=== PATIENT | female | born 1985 | race Caucasian/White ===

== ENCOUNTER → 2017-10-26 10:48 | Outpatient (CLI) | payer BC, SELFPAY ==
[2017-10-26 12:17] LABS: Add Manual Diff / Slide Review NO; Basophils Percent Auto 0.6 % (0-2); Eosinophils Percent Auto 0.6 % (2-4); Hematocrit 40.5 % (36-46); Hemoglobin 13.6 g/dL (12.0-16.0); Mean Corpuscular HGB Conc 33.7 % (30-36); Mean Corpuscular Hemoglobin 30.3 PG (26-34); Mean Corpuscular Volume 89.8 fL (80-100); Monocytes Percent Auto 6.2 % (3-14); Neutrophils Absolute Auto 4400 /uL (3000-5900); Neutrophils Percent Auto 66.6 % (50-75); Platelet Count 295 X10^3/uL (150-400); Red Blood Cell Count 4.51 X10^6/uL (4.0-5.2); Red Cell Distribution Width 15.3 % (11.6-14.8); White Blood Cell Count 6.6 X10^3/uL (4.5-11.0)
[2017-10-26 12:25] LABS: BUN Creatinine Ratio 17.1 (6-22); Blood Urea Nitrogen 12 mg/dL (7-17); Calcium 9.7 mg/dL (8.4-10.2); Carbon Dioxide 28 mmol/L (22-32); Chloride 101 mmol/L (98-107); Estimated Glomerular Filt Rate > 60.0 mL/min (>60); Glucose 97 mg/dL (70-100); HEMOLYSIS < 15 (0-50); Potassium 4.1 mmol/L (3.4-5.1); Sodium 141 mmol/L (137-145)
[2017-10-26 17:28] LABS: Free T3, Triiodothyronine Free 2.39 pg/mL (2.77-5.27)
[2017-10-26 17:42] LABS: TSH w/ Reflex to FT4 1.09 uIU/mL (0.47-4.68)
== END ==
PROVIDERS: Family Provider Physician Assistant; PCP Physician Assistant; Visit Provider Physician Assistant
DX: R53.83 Other fatigue (principal)
CPT/HCPCS: 36415; 80048; 84443; 84481; 85025

== ENCOUNTER → 2019-05-09 06:57 | Outpatient (CLI) | payer BC, SELFPAY ==
[2019-05-09 08:20] LABS: Add Manual Diff / Slide Review NO; Basophils Absolute Auto 100 /uL (0-100); Basophils Percent Auto 0.7 % (0-2); Eosinophils Absolute Auto 200 /uL (0-450); Eosinophils Percent Auto 2.4 % (2-4); Hematocrit 37.4 % (36-46); Hemoglobin 12.4 g/dL (12.0-16.0); Lymphocytes Absolute Auto 2400 /uL (1100-4500); Lymphocytes Percent Auto 34.8 % (25-40); Mean Corpuscular HGB Conc 33.1 % (30-36); Mean Corpuscular Hemoglobin 28.8 PG (26-34); Mean Corpuscular Volume 87.2 fL (80-100); Monocytes Absolute Auto 600 /uL (0-900); Monocytes Percent Auto 8.6 % (3-14); Neutrophils Absolute Auto 3700 /uL (1500-7000); Neutrophils Percent Auto 53.5 % (50-75); Platelet Count 356 X10^3/uL (150-400); Red Blood Cell Count 4.28 X10^6/uL (4.0-5.2); Red Cell Distribution Width 17.3 % (11.6-14.8); White Blood Cell Count 6.8 X10^3/uL (4.5-11.0)
[2019-05-09 08:34] LABS: Pregnancy Test Serum,Qual Negative (Negative)
[2019-05-09 08:36] LABS: Alanine Aminotransferase 36 IU/L (<35); Albumin 4.7 g/dL (3.5-5.0); Albumin Globulin Ratio 1.6 (1.0-2.8); Alkaline Phosphatase 82 U/L (38-126); Aspartate Aminotransferase 41 IU/L (14-36); Bilirubin Total 0.3 mg/dL (0.2-1.3); Blood Urea Nitrogen 18 mg/dL (7-17); Calcium 9.9 mg/dL (8.4-10.2); Carbon Dioxide 29 mmol/L (22-32); Chloride 101 mmol/L (98-107); Estimated Glomerular Filt Rate > 60.0 mL/min (>60); Globulin 2.9 g/dL (1.7-4.1); Glucose 84 mg/dL (70-100); HEMOLYSIS < 15 (0-50); Potassium 4.1 mmol/L (3.4-5.1); Sodium 141 mmol/L (137-145); Total Protein 7.6 g/dL (6.3-8.2)
[2019-05-09 08:52] LABS: Free T4, Direct Thyroxine 0.87 ng/dL (0.78-2.19)
[2019-05-09 08:57] LABS: Vitamin D 25 Hydroxy (D3) 40.9 ng/mL (30.0-100.0)
[2019-05-09 09:05] LABS: Thyroid Stimulating Hormone 1.89 uIU/mL (0.47-4.68)
== END ==
PROVIDERS: Family Provider Physician Assistant; PCP Physician Assistant; Referring Provider Nurse Practitioner Psychiatric/Mental Health; Visit Provider Nurse Practitioner Psychiatric/Mental Health
DX: Z00.00 Encounter for general adult medical examination without abnormal findings (principal); Z51.81 Encounter for therapeutic drug level monitoring; F41.8 Other specified anxiety disorders
CPT/HCPCS: 36415; 80053; 82306; 84439; 84443; 84703; 85025

== ENCOUNTER → 2019-05-25 12:32 | Outpatient (CLI) | payer BC, SELFPAY ==
[2019-05-25 14:01] LABS: Alanine Aminotransferase 14 IU/L (<35); Albumin Globulin Ratio 1.6 (1.0-2.8); Alkaline Phosphatase 71 U/L (38-126); Aspartate Aminotransferase 24 IU/L (14-36); Bilirubin Total 0.3 mg/dL (0.2-1.3); Bilirubin Unconjugated 0.2 mg/dL (0.0-1.1); Globulin 3.2 g/dL (1.7-4.1); HEMOLYSIS < 15 (0-50); Total Protein 8.2 g/dL (6.3-8.2)
== END ==
PROVIDERS: Family Provider Physician Assistant; PCP Nurse Practitioner; Referring Provider Nurse Practitioner; Visit Provider Nurse Practitioner
DX: R74.8 Abnormal levels of other serum enzymes (principal)
CPT/HCPCS: 36415; 80076

== ENCOUNTER 2019-08-08 16:06 | Emergency (ER) | payer BC, SELFPAY ==
[2019-08-08 16:15] VITALS: BP 128/84; PULSE 68; RESP 18; TEMP 36.7; O2SAT 99
--- NOTE | 2019-08-08 16:23 | PC.NURSE ---
Patient has a history or vasovagel response. Patient has felt near syncope three times today. Feels overall fatigued. Denies chest pain or SOB
--- NOTE | 2019-08-08 16:25 | DI.RAD.S_ITS ---
PROCEDURE: XR CHEST 1V INDICATIONS: chest pain TECHNIQUE: One view of the chest was acquired. COMPARISON: [facility], , CHEST 2 VIEW, 01/08/2015, 9:30. FINDINGS: Surgical changes and devices: None. Lungs and pleura: Lungs are clear. No pleural effusions or pneumothorax. Mediastinum: Mediastinal contours appear normal. Heart size is normal. Bones and chest wall: No suspicious bony lesions. Overlying soft tissues appear unremarkable. IMPRESSION: No acute process. Dictated by: Paramjit Timmons M.D. on 08/08/2019 at 17:54 Approved by: Paramjit Timmons M.D. on 08/08/2019 at 17:54
--- NOTE | 2019-08-08 16:41 | ED.SYNCOPE ---
HPI - Syncope <Lila Cortez DO - Last Filed: 08/08/19 16:42> General Chief Complaint: Syncope Stated Complaint: Syncopable episodes Time Seen by Provider: 08/08/19 16:41 Source: patient, family and other Mode of arrival: Family Vehicle Limitations: no limitations Related Data Home Medications Medication Instructions Recorded Confirmed albuterol sulfate 90 mcg/actuation 2 puff INHALATION Q4-6H PRN inh 08/01/17 08/08/19 aerosol inhaler multivitamin 1 tab PO DAILY 09/05/18 08/08/19 cholecalciferol (vitamin D3) 25 2,000 unit PO DAILY cap 04/03/19 08/08/19 mcg (1,000 unit) capsule Previous Rx's Medication Instructions Recorded hydroxyzine pamoate 25 mg capsule 25 mg PO Q4-6H PRN #90 cap MDD 05/25/19 Anxiety lamotrigine 100 mg tablet 100 mg PO ONCE #90 tab 06/11/19 sertraline 100 mg tablet 150 mg PO DAILY #45 tab 07/16/19 ziprasidone HCl 20 mg capsule 20 mg PO BID #60 cap 07/16/19 Allergies Allergy/AdvReac Type Severity Reaction Status Date / Time clonazepam [CLONAZEPAM] AdvReac Severe suicidal Verified 08/08/19 16:31 ideation <Shannan Zambrano PA-C - Last Filed: 08/08/19 20:09> General Source: patient Mode of arrival: Ambulatory Limitations: no limitations <Shannan Zambrano PA-C - Last Filed: 08/08/19 20:09> Review of Systems Narrative: 12 point review of systems is negative except for those stated above Patient History <Lila Cortez DO - Last Filed: 08/08/19 16:42> Social History (Updated 07/22/17 @ 08:59 by Sari Jones RN) household members: spouse lives independently: Yes pets and animals: Yes education level: college occupational status: employed leisure activities: other other: dancing, theater seatbelt use: always water heater temp set < 120 deg: Yes working smoke detector in home: Yes fire extinguisher in home: No carbon monox detector in home: Yes firearms in home: No Smoking Status: Never smoker second hand exposure: Yes (ocassionaly. My smokes, but not around me.) alcohol intake: current (usually jin - maybe once a week.) substance use type: does not use during the past year weight has: remained stable well-balanced diet: daily or most days daily servings fruits/ve-4 caffeine: Yes eating out: 1-3 times/week Type(s) of exercise: walking and other frequency: 5-6 times per week Smoking Status: Never smoker alcohol intake frequency: 0-2 drinks per day Substance Use Type: does not use Exam <Lila Cortez DO - Last Filed: 08/08/19 16:42> Initial Vital Signs Initial Vital Signs: Vital Signs Temperature 98.1 F 08/08/19 16:15 Pulse Rate 68 08/08/19 16:15 Respiratory Rate 18 08/08/19 16:15 Blood Pressure 128/84 08/08/19 16:15 Pulse Oximetry 99 08/08/19 16:15 <Shannan Zambrano PA-C - Last Filed: 08/08/19 20:09> Initial Vital Signs Initial Vital Signs: Vital Signs Temperature 98.1 F 08/08/19 16:15 Pulse Rate 68 08/08/19 16:15 Respiratory Rate 18 08/08/19 16:15 Blood Pressure 128/84 08/08/19 16:15 Pulse Oximetry 99 08/08/19 16:15 Course <Lila Cortez DO - Last Filed: 08/08/19 16:42> Orders Ordered: ED Orders 08/08/19 16:25 XR chest 1V Stat EKG-12 Lead Stat 08/08/19 17:03 Complete Blood Count AUTO DIFF Stat Comprehensive Metabolic Panel Stat Lipase Stat Partial Thromboplastin Time Stat Prothrombin Time INR Stat Troponin & CK Cardiac Panel Stat 08/08/19 19:00 CT head/brain wo con Stat Vital Signs Vital signs: Vital Signs - 8 hr 08/08/19 16:15 08/08/19 18:58 08/08/19 19:42 Temperature 98.1 F Pulse Rate 68 66 73 Respiratory Rate 18 14 16 Blood Pressure 128/84 Blood Pressure [Right Arm] 128/84 133/92 H Pulse Oximetry 99 99 98 <JASS Nelson Last Filed: 08/08/19 20:09> Orders Ordered: ED Orders 08/08/19 16:25 XR chest 1V Stat EKG-12 Lead Stat 08/08/19 17:03 Complete Blood Count AUTO DIFF Stat Comprehensive Metabolic Panel Stat Lipase Stat Partial Thromboplastin Time Stat Prothrombin Time INR Stat Troponin & CK Cardiac Panel Stat 08/08/19 19:00 CT head/brain wo con Stat Vital Signs Vital signs: Vital Signs - 8 hr 08/08/19 16:15 08/08/19 18:58 08/08/19 19:42 Temperature 98.1 F Pulse Rate 68 66 73 Respiratory Rate 18 14 16 Blood Pressure 128/84 Blood Pressure [Right Arm] 128/84 133/92 H Pulse Oximetry 99 99 98 MDM - Syncope <Lila Cortez, DO - Last Filed: 08/08/19 16:42> Lab Data Result diagrams: 08/08/19 17:03 08/08/19 17:03 Labs: Lab Results 08/08/19 08/08/19 08/08/19 Range/Units 17:03 17:03 17:03 WBC 6.1 (4.5-11.0) X10^3/uL RBC 4.24 (4.0-5.2) X10^6/uL Hgb 11.9 L (12.0-16.0) g/dL Hct 36.4 (36-46) % MCV 85.8 (80-100) fL MCH 28.1 (26-34) PG MCHC 32.7 (30-36) % RDW 17.1 H (11.6-14.8) % Plt Count 309 (150-400) X10^3/uL Neut % (Auto) 51.1 (50-75) % Lymph % (Auto) 35.3 (25-40) % [place] % (Auto) 10.5 (3-14) % Eos % (Auto) 2.1 (2-4) % Baso % (Auto) 1.0 (0-2) % Neut # (Auto) 3100 (3054-1394) /uL Lymph # (Auto) 2100 (7678-0160) /uL [place] # (Auto) 600 (0-900) /uL Eos # (Auto) 100 (0-450) /uL Baso # (Auto) 100 (0-100) /uL PT 12.0 (10.1-12.7) SECONDS INR 1.0 (0.9-1.3) APTT 34 (26.4-36.2) SECONDS Sodium 139 (137-145) mmol/L Potassium 4.5 (3.4-5.1) mmol/L Chloride 105 (98-107) mmol/L Carbon Dioxide 27 (22-32) mmol/L BUN 13 (7-17) mg/dL Creatinine 0.80 (0.52-1.04) mg/dL Estimated GFR > 60.0 (>60) mL/min BUN/Creatinine Ratio 16.3 (6-22) Glucose 94 (70-100) mg/dL Calcium 9.7 (8.4-10.2) mg/dL Total Bilirubin 0.3 (0.2-1.3) mg/dL AST 23 (14-36) IU/L ALT 11 (<35) IU/L Alkaline Phosphatase 62 (38-126) U/L Total Creatine Kinase 71 (30-135) U/L CK-MB (CK-2) TNP CK-MB (CK-2) Rel Index TNP Troponin I < 0.012 (0.01-0.034) ng/mL Total Protein 7.8 (6.3-8.2) g/dL Albumin 4.7 (3.5-5.0) g/dL Globulin 3.1 (1.7-4.1) g/dL Albumin/Globulin Ratio 1.5 (1.0-2.8) Lipase 191 (23-300) U/L Point of Care Testing Test Results Negative Urine Dip Bedside Urine Glucose Negative Bedside Urine Bilirubin - Negative Bedside Urine Ketone - Negative Urine Specific [place] 1.010 Bedside Urine Occult Blood - Negative Bedside Urine pH 6.5 Bedside Urine Protein - Negative Bedside Urine Urobilinogen - Negative Bedside Urine Nitrite - Negative Bedside Urine Leukocytes +/- 15 Esterase ECG Data Attestation: I personally reviewed and interpreted this ECG as follows: Interpretation: Sinus rhythm with sinus arrhythmia rate of 73 P are 149 QRS 84 and QTC of 415. No ST changes appreciated. Patient has prior EKG from 01/30/2016 which appears similar. <Shannan Zambrano PA-C - Last Filed: 08/08/19 20:09> Lab Data Labs: Lab Results 08/08/19 08/08/19 08/08/19 Range/Units 17:03 17:03 17:03 WBC 6.1 (4.5-11.0) X10^3/uL RBC 4.24 (4.0-5.2) X10^6/uL Hgb 11.9 L (12.0-16.0) g/dL Hct 36.4 (36-46) % MCV 85.8 (80-100) fL MCH 28.1 (26-34) PG MCHC 32.7 (30-36) % RDW 17.1 H (11.6-14.8) % Plt Count 309 (150-400) X10^3/uL Neut % (Auto) 51.1 (50-75) % Lymph % (Auto) 35.3 (25-40) % [place] % (Auto) 10.5 (3-14) % Eos % (Auto) 2.1 (2-4) % Baso % (Auto) 1.0 (0-2) % Neut # (Auto) 3100 (4254-9027) /uL Lymph # (Auto) 2100 (8498-6405) /uL [place] # (Auto) 600 (0-900) /uL Eos # (Auto) 100 (0-450) /uL Baso # (Auto) 100 (0-100) /uL PT 12.0 (10.1-12.7) SECONDS INR 1.0 (0.9-1.3) APTT 34 (26.4-36.2) SECONDS Sodium 139 (137-145) mmol/L Potassium 4.5 (3.4-5.1) mmol/L Chloride 105 (98-107) mmol/L Carbon Dioxide 27 (22-32) mmol/L BUN 13 (7-17) mg/dL Creatinine 0.80 (0.52-1.04) mg/dL Estimated GFR > 60.0 (>60) mL/min BUN/Creatinine Ratio 16.3 (6-22) Glucose 94 (70-100) mg/dL Calcium 9.7 (8.4-10.2) mg/dL Total Bilirubin 0.3 (0.2-1.3) mg/dL AST 23 (14-36) IU/L ALT 11 (<35) IU/L Alkaline Phosphatase 62 (38-126) U/L Total Creatine Kinase 71 (30-135) U/L CK-MB (CK-2) TNP CK-MB (CK-2) Rel Index TNP Troponin I < 0.012 (0.01-0.034) ng/mL Total Protein 7.8 (6.3-8.2) g/dL Albumin 4.7 (3.5-5.0) g/dL Globulin 3.1 (1.7-4.1) g/dL Albumin/Globulin Ratio 1.5 (1.0-2.8) Lipase 191 (23-300) U/L Point of Care Testing Test Results Negative Urine Dip Bedside Urine Glucose Negative Bedside Urine Bilirubin - Negative Bedside Urine Ketone - Negative Urine Specific [place] 1.010 Bedside Urine Occult Blood - Negative Bedside Urine pH 6.5 Bedside Urine Protein - Negative Bedside Urine Urobilinogen - Negative Bedside Urine Nitrite - Negative Bedside Urine Leukocytes +/- 15 Esterase Discharge Plan Departure Patient Disposition: Home Clinical Impression: Syncope Qualifiers: Syncope type: unspecified Qualified Code(s): R55 - Syncope and collapse Lower extremity weakness Qualifiers: Laterality: bilateral Qualified Code(s): R29.898 - Other symptoms and signs involving the musculoskeletal system Instructions: DI for Syncope in Adults (Fainting) Activity Restrictions/Additional Instructions: Thank you for letting us to be part of your care today in the emergency department. There is no evidence of an emergent or life threatening illness at this time, but follow up with your doctor in 1-2 days is recommended nonetheless to continue to rule out serious underlying causes of your symptoms. Please call the office for an appointment. Please return to the Emergency Department for any worsening or persistent symptoms. Please take medications as directed. We do not have a clear answer for the cause of your symptoms, and advise you to follow-up with your primary care in the next 1-2 days for reassessment, if you continue to have symptoms your PCP may wish to refer you for an MRI for further assessment. If you experience fever, increasing weakness, loss of bowel or bladder function, severe headache, vision changes, nausea and vomiting, increased difficulty walking, or any other symptoms of concern to you please seek medical care or return to the emergency department. I am providing you with a work note, as I think it is advisable that you rest at home for the next few days. We did not find any evidence that your syncopal episodes are cardiac in nature, however we do not have a clear answer for why they are happening nor do we have a clear answer for why you have had increased leg weakness today. The CT scan that was performed did not show anything that would suggest a life-threatening concern or require further workup here or admission to the hospital today. Prescriptions: No Action albuterol sulfate [Ventolin HFA] 90 mcg/actuation HFA aerosol inhaler 2 puff INHALATION Q4-6H PRNRF: 0 cholecalciferol (vitamin D3) 1,000 unit capsule 2,000 unit PO DAILY RF: 0 lamotrigine 100 mg tablet 100 mg PO ONCE Qty: 90 RF: 0 ziprasidone HCl 20 mg capsule 20 mg PO BID Qty: 60 RF: 2 sertraline 100 mg tablet 150 mg PO DAILY Qty: 45 RF: 2 multivitamin tablet 1 tab PO DAILY RF: 0 hydroxyzine pamoate [Vistaril] 25 mg capsule 25 mg PO Q4-6H MDD Anxiety PRN (Reason: anxiety) Qty: 90 RF: 1 Referrals: Ashli Acevedo ARNP [Primary Care Provider] - Stand Alone Forms: Work Release Note
[2019-08-08 17:10] LABS: Add Manual Diff / Slide Review NO; Basophils Absolute Auto 100 /uL (0-100); Eosinophils Absolute Auto 100 /uL (0-450); Eosinophils Percent Auto 2.1 % (2-4); Hematocrit 36.4 % (36-46); Hemoglobin 11.9 g/dL (12.0-16.0); Lymphocytes Absolute Auto 2100 /uL (1100-4500); Lymphocytes Percent Auto 35.3 % (25-40); Mean Corpuscular HGB Conc 32.7 % (30-36); Mean Corpuscular Hemoglobin 28.1 PG (26-34); Mean Corpuscular Volume 85.8 fL (80-100); Monocytes Absolute Auto 600 /uL (0-900); Monocytes Percent Auto 10.5 % (3-14); Neutrophils Absolute Auto 3100 /uL (1500-7000); Neutrophils Percent Auto 51.1 % (50-75); Platelet Count 309 X10^3/uL (150-400); Red Blood Cell Count 4.24 X10^6/uL (4.0-5.2); Red Cell Distribution Width 17.1 % (11.6-14.8); White Blood Cell Count 6.1 X10^3/uL (4.5-11.0)
[2019-08-08 17:23] LABS: PTT Partial Thromboplastin Tim 34 SECONDS (26.4-36.2)
[2019-08-08 17:24] LABS: Alanine Aminotransferase 11 IU/L (<35); Albumin 4.7 g/dL (3.5-5.0); Albumin Globulin Ratio 1.5 (1.0-2.8); Alkaline Phosphatase 62 U/L (38-126); Aspartate Aminotransferase 23 IU/L (14-36); BUN Creatinine Ratio 16.3 (6-22); Bilirubin Total 0.3 mg/dL (0.2-1.3); Blood Urea Nitrogen 13 mg/dL (7-17); Calcium 9.7 mg/dL (8.4-10.2); Carbon Dioxide 27 mmol/L (22-32); Chloride 105 mmol/L (98-107); Creatine Kinase 71 U/L (30-135); Estimated Glomerular Filt Rate > 60.0 mL/min (>60); Globulin 3.1 g/dL (1.7-4.1); Glucose 94 mg/dL (70-100); HEMOLYSIS < 15 (0-50); Lipase 191 U/L (23-300); Potassium 4.5 mmol/L (3.4-5.1); Sodium 139 mmol/L (137-145); Total Protein 7.8 g/dL (6.3-8.2)
--- NOTE | 2019-08-08 17:24 | ED_ITS ---
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 She reports that she has been having the syncopal episodes about every 3 or 4 months, and was worked up for these by cardiology very thoroughly back in 2013, and they were not found to be cardiac in origin at that time. She says that she had a episode today which felt like her normal episodes in that she felt like the room was going dark and she knew she needed to sit down so she did not fall. She had a 2nd episode, and also realized that she was having weakness in both of her legs and feeling like her knees were going to give out most of the time when she was walking after this episode. She has never had this experience before with these episodes. She also notes that about a month ago she was sick for 2 weeks with nausea and vomiting that was unexplained, she says she never had a fever and did not seek medical care at that time but has been feeling a little bit tired ever since then. Yesterday she also felt foggy in her brain and today she felt like she was having some word-finding issues and difficulty with conversation. She is a nonsmoker and she does not take control she does take multiple medications for anxiety and depression. She denies any recent change to her medications, denies heavy periods or recent bleeding, dehydration, or reduced PO intake. complaint: almost passed out Onset (ago): hour(s) (5) Duration of episode: 30 -: second(s) Prodromal symptoms: vision changes and lightheaded Witnessed: yes - by bystander Context: other (occurred while standing at work) Injuries sustained associated with event: none Current symptoms: lightheaded and weakness (of lower legs) History: previous syncopal episode Treatments prior to arrival: none Related Data Home Medications Medication Instructions Recorded Confirmed albuterol sulfate 90 mcg/actuation 2 puff INHALATION Q4-6H PRN inh 08/01/17 08/08/19 aerosol inhaler multivitamin 1 tab PO DAILY 09/05/18 08/08/19 cholecalciferol (vitamin D3) 25 2,000 unit PO DAILY cap 04/03/19 08/08/19 mcg (1,000 unit) capsule Previous Rx's Medication Instructions Recorded hydroxyzine pamoate 25 mg capsule 25 mg PO Q4-6H PRN #90 cap MDD 05/25/19 Anxiety lamotrigine 100 mg tablet 100 mg PO ONCE #90 tab 06/11/19 sertraline 100 mg tablet 150 mg PO DAILY #45 tab 07/16/19 ziprasidone HCl 20 mg capsule 20 mg PO BID #60 cap 07/16/19 Allergies Allergy/AdvReac Type Severity Reaction Status Date / Time clonazepam [CLONAZEPAM] AdvReac Severe suicidal Verified 08/08/19 16:31 ideation Review of Systems <Shannan Zambrano PA-C - Last Filed: 08/08/19 20:28> Review of Systems Narrative: GENERAL: Denies chills, fatigue, malaise, fever, sweats. HEENT: Denies sinus pain, ear pain, sore throat, difficulty swallowing, positive for dizziness. RESPIRATORY: Denies dyspnea, cough, wheezing, hemoptysis, sputum. CARDIOVASCULAR: Denies chest pain, palpitations, orthopnea, edema, GASTROINTESTINAL: Denies abdominal pain, diarrhea, constipation, melena, positive for approximately 2 weeks of nausea and vomiting that resolved 1-1/2 to 2 weeks ago. : Denies dysuria, frequency, incontinence, hematuria, urinary retention. MUSCULOSKELETAL: Positive for bilateral lower extremity weakness, difficulty walking, slow gait, denies, joint pain, or bony pain SKIN: Denies rash, skin lesions, or other NEUROLOGIC: Denies weakness, headache, numbness, change in speech, confusion, seizures, incoordination. PSYCHIATRIC: No concerning psychosocial issues. Patient History <Shannan Zambrano PA-C - Last Filed: 08/08/19 20:28> Social History (Updated 07/22/17 @ 08:59 by Sari Jones RN) household members: spouse lives independently: Yes pets and animals: Yes education level: college occupational status: employed leisure activities: other other: dancing, theater seatbelt use: always water heater temp set < 120 deg: Yes working smoke detector in home: Yes fire extinguisher in home: No carbon monox detector in home: Yes firearms in home: No Smoking Status: Never smoker second hand exposure: Yes (ocassionaly. My smokes, but not around me.) alcohol intake: current (usually jin - maybe once a week.) substance use type: does not use during the past year weight has: remained stable well-balanced diet: daily or most days daily servings fruits/ve-4 caffeine: Yes eating out: 1-3 times/week Type(s) of exercise: walking and other frequency: 5-6 times per week Smoking Status: Never smoker alcohol intake frequency: 0-2 drinks per day Substance Use Type: does not use Exam <Shannan Zambrano PA-C - Last Filed: 08/08/19 20:28> Narrative Exam Narrative: GENERAL: 33 year old patient appears stated age. Well-nourished, well-developed patient, in mild distress. HEAD: Atraumatic. Normocephalic. EYES: Pupils equal round and reactive. Extraocular motions intact. No scleral icterus. No injection or drainage. ENT: Nose without bleeding, purulent drainage. Throat without erythema, tonsillar hypertrophy or exudate. Airway patent. NECK: Trachea midline. Non tender CARDIOVASCULAR: Regular rate and rhythm without murmurs, gallops, or rubs. RESPIRATORY: Clear to auscultation. Breath sounds equal bilaterally. No wheezes, rales, or rhonchi. GASTROINTESTINAL: Abdomen soft, non-tender, nondistended. EXTREMITIES: No edema or joint tenderness. BACK: Nontender without deformity or crepitance. No flank tenderness. NEURO: AOx3. Cranial nerves are intact. Negative for pronator drift. Coordination is intact, strength is intact bilaterally, however slightly reduced in the lower extremities with 4/5 strength with active flexion and extension. Delayed walk with slight Left to Right movement as Pt concentrates on foot placement. SKIN: No rash or erythema of visible areas Initial Vital Signs Initial Vital Signs: Vital Signs Temperature 98.1 F 08/08/19 16:15 Pulse Rate 68 08/08/19 16:15 Respiratory Rate 18 08/08/19 16:15 Blood Pressure 128/84 08/08/19 16:15 Pulse Oximetry 99 08/08/19 16:15 <Jacque Gama MD - Last Filed: 08/08/19 21:37> Initial Vital Signs Initial Vital Signs: Vital Signs Temperature 98.1 F 08/08/19 16:15 Pulse Rate 68 08/08/19 16:15 Respiratory Rate 18 08/08/19 16:15 Blood Pressure 128/84 08/08/19 16:15 Pulse Oximetry 99 08/08/19 16:15 Course <JASS Nelson Last Filed: 08/08/19 20:28> Orders Ordered: ED Orders 08/08/19 16:25 XR chest 1V Stat EKG-12 Lead Stat 08/08/19 17:03 Complete Blood Count AUTO DIFF Stat Comprehensive Metabolic Panel Stat Lipase Stat Partial Thromboplastin Time Stat Prothrombin Time INR Stat Troponin & CK Cardiac Panel Stat 08/08/19 19:00 CT head/brain wo con Stat Vital Signs Vital signs: Vital Signs - 8 hr 08/08/19 16:15 08/08/19 18:58 08/08/19 19:42 Temperature 98.1 F Pulse Rate 68 66 73 Respiratory Rate 18 14 16 Blood Pressure 128/84 Blood Pressure [Right Arm] 128/84 133/92 H Pulse Oximetry 99 99 98 <Jacque Gama MD - Last Filed: 08/08/19 21:37> Orders Ordered: ED Orders 08/08/19 16:25 XR chest 1V Stat EKG-12 Lead Stat 08/08/19 17:03 Complete Blood Count AUTO DIFF Stat Comprehensive Metabolic Panel Stat Lipase Stat Partial Thromboplastin Time Stat Prothrombin Time INR Stat Troponin & CK Cardiac Panel Stat 08/08/19 19:00 CT head/brain wo con Stat Vital Signs Vital signs: Vital Signs - 8 hr 08/08/19 16:15 08/08/19 18:58 08/08/19 19:42 Temperature 98.1 F Pulse Rate 68 66 73 Respiratory Rate 18 14 16 Blood Pressure 128/84 Blood Pressure [Right Arm] 128/84 133/92 H Pulse Oximetry 99 99 98 MDM - Syncope <JASS Nelson Last Filed: 08/08/19 20:28> Differential Diagnosis Differential diagnosis: Likely other (near syncope, bilateral LE weakness, word finding difficulty) Medical Records Attestation: I reviewed the patient's medical records. Lab Data Attestation: I reviewed the patient's lab results. Result diagrams: 08/08/19 17:03 08/08/19 17:03 Labs: Lab Results 08/08/19 08/08/19 08/08/19 Range/Units 17:03 17:03 17:03 WBC 6.1 (4.5-11.0) X10^3/uL RBC 4.24 (4.0-5.2) X10^6/uL Hgb 11.9 L (12.0-16.0) g/dL Hct 36.4 (36-46) % MCV 85.8 (80-100) fL MCH 28.1 (26-34) PG MCHC 32.7 (30-36) % RDW 17.1 H (11.6-14.8) % Plt Count 309 (150-400) X10^3/uL Neut % (Auto) 51.1 (50-75) % Lymph % (Auto) 35.3 (25-40) % [place] % (Auto) 10.5 (3-14) % Eos % (Auto) 2.1 (2-4) % Baso % (Auto) 1.0 (0-2) % Neut # (Auto) 3100 (7635-3164) /uL Lymph # (Auto) 2100 (6500-8849) /uL [place] # (Auto) 600 (0-900) /uL Eos # (Auto) 100 (0-450) /uL Baso # (Auto) 100 (0-100) /uL PT 12.0 (10.1-12.7) SECONDS INR 1.0 (0.9-1.3) APTT 34 (26.4-36.2) SECONDS Sodium 139 (137-145) mmol/L Potassium 4.5 (3.4-5.1) mmol/L Chloride 105 (98-107) mmol/L Carbon Dioxide 27 (22-32) mmol/L BUN 13 (7-17) mg/dL Creatinine 0.80 (0.52-1.04) mg/dL Estimated GFR > 60.0 (>60) mL/min BUN/Creatinine Ratio 16.3 (6-22) Glucose 94 (70-100) mg/dL Calcium 9.7 (8.4-10.2) mg/dL Total Bilirubin 0.3 (0.2-1.3) mg/dL AST 23 (14-36) IU/L ALT 11 (<35) IU/L Alkaline Phosphatase 62 (38-126) U/L Total Creatine Kinase 71 (30-135) U/L CK-MB (CK-2) TNP CK-MB (CK-2) Rel Index TNP Troponin I < 0.012 (0.01-0.034) ng/mL Total Protein 7.8 (6.3-8.2) g/dL Albumin 4.7 (3.5-5.0) g/dL Globulin 3.1 (1.7-4.1) g/dL Albumin/Globulin Ratio 1.5 (1.0-2.8) Lipase 191 (23-300) U/L Point of Care Testing Test Results Negative Urine Dip Bedside Urine Glucose Negative Bedside Urine Bilirubin - Negative Bedside Urine Ketone - Negative Urine Specific [place] 1.010 Bedside Urine Occult Blood - Negative Bedside Urine pH 6.5 Bedside Urine Protein - Negative Bedside Urine Urobilinogen - Negative Bedside Urine Nitrite - Negative Bedside Urine Leukocytes +/- [address] scan - head: Attestation: I personally reviewed and interpreted this imaging study as follows: Radiologist's Impression: [place] [address] CT Scan Report Signed Patient: Marianela Styles CMR#: [id number] : 1985Acct:[id number] Age/Sex: 33 / FDate of Service: 08/08/19 Loc: ED Accession Number: [id number] Procedure: CT head/brain wo con Ordering Provider: Shannan Zambrano P.A-C PROCEDURE: CT HEAD/BRAIN WO CON INDICATIONS: weakness, word finding difficulty TECHNIQUE: Noncontrast 4.5 mm thick angled axial sections acquired from the foramen magnum to the vertex, with coronal and sagittal reformats. For radiation dose reduction, the following was used: automated exposure control, adjustment of mA and/or kV according to patient size. COMPARISON: None. FINDINGS: Image quality: Excellent. CSF spaces: Basal cisterns are patent. No extra-axial fluid collections. Ventricles are normal in size and shape. Brain: No midline shift. No intracranial masses or hemorrhage. Baker-white matter interface is normal. Skull and face: Calvarium and visualized facial bones are intact, without suspicious lesions. Sinuses: Visualized sinuses and mastoids are clear. IMPRESSION: No acute intracranial abnormality. Dictated by: Paramjit Timmons M.D. on 08/08/2019 at 19:30 Approved by: Paramjit Timmons M.D. on 08/08/2019 at 19:30 Chest x-ray: Attestation: I personally reviewed and interpreted this imaging study as follows: Radiologist's Impression: [address] [address] XRay Report Signed Patient: Marianela Styles CMR#: [id number] : 1985Acct:[id number] Age/Sex: 33 / FDate of Service: 08/08/19 Loc: ED Accession Number: [id number] Procedure: XR chest 1V Ordering Provider: Lila Cortez D.O. PROCEDURE: XR CHEST 1V INDICATIONS: chest pain TECHNIQUE: One view of the chest was acquired. COMPARISON: [facility], , CHEST 2 VIEW, 01/08/2015, 9:30. FINDINGS: Surgical changes and devices: None. Lungs and pleura: Lungs are clear. No pleural effusions or pneumothorax. Mediastinum: Mediastinal contours appear normal. Heart size is normal. Bones and chest wall: No suspicious bony lesions. Overlying soft tissues appear unremarkable. IMPRESSION: No acute process. Dictated by: Paramjit Timmons M.D. on 08/08/2019 at 17:54 Approved by: Paramjit Timmons M.D. on 08/08/2019 at 17:54 ECG Data Attestation: I personally reviewed and interpreted this ECG as follows: Prior ECG tracings: not available for review Interpretation: NSR Rate 73, [place] [address] changes, Normal sinus rhythm with sinus arrythmia. MDM Narrative Medical decision making narrative: This is a well-appearing 33-year-old nonsmoking woman with a history notable for rare syncopal episodes, depression and anxiety who presents to the emergency department with two near syncopal episodes today while at work, followed by bilateral lower extremity weakness and difficulty ambulating--referred by PCP after office visit. Also reports of word-finding difficulty. No red flag symptoms. Concern for possible CVA versus mass versus MS or other progressive neurologic disease, also concern for possible viral illness--she did have 2 weeks of nausea and vomiting recently without explanation. Neuro exam was normal, with exception of slightly reduced strength in the lower extremities. And some difficulty ambulating, she did have 1 episode of word- finding difficulty during interview. CT was negative for mass or intracranial bleed, labs were also unremarkable. COVID test was performed. Etiology of her near syncopal episodes remains unclear as does the cause of her bilateral lower extremity weakness, she may benefit from an MRI as an outpatient as referred by her PCP if warranted. She was discharged home to the care of her and follow-up with her primary care, given a note for work, and given emergency return precautions. <Jacque Gama MD - Last Filed: 08/08/19 21:37> Lab Data Labs: Lab Results 08/08/19 08/08/19 08/08/19 Range/Units 17:03 17:03 17:03 WBC 6.1 (4.5-11.0) X10^3/uL RBC 4.24 (4.0-5.2) X10^6/uL Hgb 11.9 L (12.0-16.0) g/dL Hct 36.4 (36-46) % MCV 85.8 (80-100) fL MCH 28.1 (26-34) PG MCHC 32.7 (30-36) % RDW 17.1 H (11.6-14.8) % Plt Count 309 (150-400) X10^3/uL Neut % (Auto) 51.1 (50-75) % Lymph % (Auto) 35.3 (25-40) % [place] % (Auto) 10.5 (3-14) % Eos % (Auto) 2.1 (2-4) % Baso % (Auto) 1.0 (0-2) % Neut # (Auto) 3100 (4294-3161) /uL Lymph # (Auto) 2100 (7539-1818) /uL [place] # (Auto) 600 (0-900) /uL Eos # (Auto) 100 (0-450) /uL Baso # (Auto) 100 (0-100) /uL PT 12.0 (10.1-12.7) SECONDS INR 1.0 (0.9-1.3) APTT 34 (26.4-36.2) SECONDS Sodium 139 (137-145) mmol/L Potassium 4.5 (3.4-5.1) mmol/L Chloride 105 (98-107) mmol/L Carbon Dioxide 27 (22-32) mmol/L BUN 13 (7-17) mg/dL Creatinine 0.80 (0.52-1.04) mg/dL Estimated GFR > 60.0 (>60) mL/min BUN/Creatinine Ratio 16.3 (6-22) Glucose 94 (70-100) mg/dL Calcium 9.7 (8.4-10.2) mg/dL Total Bilirubin 0.3 (0.2-1.3) mg/dL AST 23 (14-36) IU/L ALT 11 (<35) IU/L Alkaline Phosphatase 62 (38-126) U/L Total Creatine Kinase 71 (30-135) U/L CK-MB (CK-2) TNP CK-MB (CK-2) Rel Index TNP Troponin I < 0.012 (0.01-0.034) ng/mL Total Protein 7.8 (6.3-8.2) g/dL Albumin 4.7 (3.5-5.0) g/dL Globulin 3.1 (1.7-4.1) g/dL Albumin/Globulin Ratio 1.5 (1.0-2.8) Lipase 191 (23-300) U/L Point of Care Testing Test Results Negative Urine Dip Bedside Urine Glucose Negative Bedside Urine Bilirubin - Negative Bedside Urine Ketone - Negative Urine Specific [place] 1.010 Bedside Urine Occult Blood - Negative Bedside Urine pH 6.5 Bedside Urine Protein - Negative Bedside Urine Urobilinogen - Negative Bedside Urine Nitrite - Negative Bedside Urine Leukocytes +/- 15 Esterase Discharge Plan Departure Patient Disposition: Home Clinical Impression: Syncope Qualifiers: Syncope type: unspecified Qualified Code(s): R55 - Syncope and collapse Lower extremity weakness Qualifiers: Laterality: bilateral Qualified Code(s): R29.898 - Other symptoms and signs involving the musculoskeletal system Discharge Date/Time: 08/08/19 20:16 Instructions: DI for Syncope in Adults (Fainting) Activity Restrictions/Additional Instructions: Thank you for letting us to be part of your care today in the emergency department. There is no evidence of an emergent or life threatening illness at this time, but follow up with your doctor in 1-2 days is recommended nonetheless to continue to rule out serious underlying causes of your symptoms. Please call the office for an appointment. Please return to the Emergency Department for any worsening or persistent symptoms. Please take medications as directed. We do not have a clear answer for the cause of your symptoms, and advise you to follow-up with your primary care in the next 1-2 days for reassessment, if you continue to have symptoms your PCP may wish to refer you for an MRI for further assessment. If you experience fever, increasing weakness, loss of bowel or bladder function, severe headache, vision changes, nausea and vomiting, increased difficulty walking, or any other symptoms of concern to you please seek medical care or return to the emergency department. I am providing you with a work note, as I think it is advisable that you rest at home for the next few days. We did not find any evidence that your syncopal episodes are cardiac in nature, however we do not have a clear answer for why they are happening nor do we have a clear answer for why you have had increased leg weakness today. The CT scan that was performed did not show anything that would suggest a life- threatening concern or require further workup here or admission to the hospital today. Prescriptions: No Action albuterol sulfate [Ventolin HFA] 90 mcg/actuation HFA aerosol inhaler 2 puff INHALATION Q4-6H PRNRF: 0 cholecalciferol (vitamin D3) 1,000 unit capsule 2,000 unit PO DAILY RF: 0 lamotrigine 100 mg tablet 100 mg PO ONCE Qty: 90 RF: 0 ziprasidone HCl 20 mg capsule 20 mg PO BID Qty: 60 RF: 2 sertraline 100 mg tablet 150 mg PO DAILY Qty: 45 RF: 2 multivitamin tablet 1 tab PO DAILY RF: 0 hydroxyzine pamoate [Vistaril] 25 mg capsule 25 mg PO Q4-6H MDD Anxiety PRN (Reason: anxiety) Qty: 90 RF: 1 Referrals: Ashli Acevedo ARNP [Primary Care Provider] - Stand Alone Forms: Work Release Note <Jacque Gama MD - Last Filed: 08/08/19 21:37> Cosign ED Attending Costylerature Attestation: I was immediately available in the department for consultation throughout this patient's visit. I agree with d ocumentation as above. Jacque Gama MD
[2019-08-08 17:36] LABS: Troponin I < 0.012 ng/mL (0.01-0.034)
[2019-08-08 18:58] VITALS: BP 128/84; PULSE 66; RESP 14; O2SAT 99
--- NOTE | 2019-08-08 19:00 | DI.CT.S_ITS ---
PROCEDURE: CT HEAD/BRAIN WO CON INDICATIONS: weakness, word finding difficulty TECHNIQUE: Noncontrast 4.5 mm thick angled axial sections acquired from the foramen magnum to the vertex, with coronal and sagittal reformats. For radiation dose reduction, the following was used: automated exposure control, adjustment of mA and/or kV according to patient size. COMPARISON: None. FINDINGS: Image quality: Excellent. CSF spaces: Basal cisterns are patent. No extra-axial fluid collections. Ventricles are normal in size and shape. Brain: No midline shift. No intracranial masses or hemorrhage. Baker-white matter interface is normal. Skull and face: Calvarium and visualized facial bones are intact, without suspicious lesions. Sinuses: Visualized sinuses and mastoids are clear. IMPRESSION: No acute intracranial abnormality. Dictated by: Paramjit Timmons M.D. on 08/08/2019 at 19:30 Approved by: Paramjit Timmons M.D. on 08/08/2019 at 19:30
[2019-08-08 19:42] VITALS: BP 133/92; PULSE 73; RESP 16; O2SAT 98
[2019-08-11 15:43] LABS: COVID19 Sendout Not Detected (Not Detected)
== END 2019-08-08 20:16 | disposition home or self-care (01) ==
PROVIDERS: Emergency Medicine; Emergency Provider Student in an Organized Health Care Education/Training Program; Family Provider Physician Assistant; PCP Nurse Practitioner
DX: R55 Syncope and collapse (principal); R07.9 Chest pain, unspecified; R29.898 Other symptoms and signs involving the musculoskeletal system; F41.8 Other specified anxiety disorders
CPT/HCPCS: 36415; 70450; 71045; 80053; 81003; 81025; 82550; 83690; 84484; 85025; 85610; 85730; 87635; 93005; 99284

== ENCOUNTER → 2019-08-28 13:34 | Outpatient (CLI) | payer BC, SELFPAY ==
--- NOTE | 2019-08-28 13:34 | DI.MRI.S_ITS ---
PROCEDURE: MR HEAD/BRAIN WO/W CON INDICATIONS: syncope, migraine h/a(s) TECHNIQUE: Noncontrast axial T1 spin echo, axial T2 fast spin echo, sagittal and axial FLAIR, coronal T2 fast spin echo, axial gradient echo, axial diffusion and ADC through the brain. After the administration of contrast, axial and coronal 3D VIBE or T1 spin echo with fat saturation through the brain. COMPARISON: None. FINDINGS: Image quality: Excellent. CSF Spaces: Basal cisterns are patent. No extra-axial fluid collections. Ventricles are normal in size and shape. Brain: No midline shift. No intracranial bleeds or masses. No abnormal intracranial enhancement. The brainstem appears normal. Diffusion-weighted images demonstrate no acute ischemic insults. No chronic ischemic insults. Normal intravascular flow voids are present. Skull and face: Calvarial marrow is normal in signal. Orbits appear normal. Sinuses: Sinuses and mastoids appear clear. IMPRESSION: 1. No examination for syncope nor migraine. 2. No acute process. No recent infarct. Dictated by: Paramjit Timmons M.D. on 08/28/2019 at 14:31 Approved by: Paramjit Timmons M.D. on 08/28/2019 at 14:33
== END ==
PROVIDERS: Family Provider Physician Assistant; PCP Nurse Practitioner; Referring Provider Nurse Practitioner; Visit Provider Nurse Practitioner
DX: R55 Syncope and collapse (principal); G43.909 Migraine, unspecified, not intractable, without status migrainosus
CPT/HCPCS: 70553

== ENCOUNTER → 2019-09-13 09:42 | Outpatient (CLI) | payer BC, SELFPAY | PROVIDERS: Family Provider Physician Assistant; PCP Nurse Practitioner; Visit Provider Registered Nurse | DX: J02.9 Acute pharyngitis, unspecified (principal) | CPT/HCPCS: 87070 ==

== ENCOUNTER 2019-09-14 19:03 | Emergency (ER) | payer BC, SELFPAY ==
[2019-09-14 19:27] VITALS: BP 125/77; PULSE 92; RESP 18; TEMP 36.6; O2SAT 98
[2019-09-14 20:40] VITALS: BP 121/74; PULSE 76; RESP 14; TEMP 37.1; O2SAT 100
--- NOTE | 2019-09-14 20:44 | ED.URI ---
HPI - URI/Sore Throat General Chief Complaint: Upper Respiratory Symptoms Stated Complaint: UNABLE TO SWALLOW Time Seen by Provider: 09/14/19 20:23 Source: patient Mode of arrival: Ambulatory Limitations: no limitations History of Present Illness HPI Narrative: 33-year-old female nonsmoker with noncontributory medical history presents with a chief complaint of worsening sore throat and low-grade fever for the past few days. She was seen and evaluated at an outside facility and had a negative strep test with throat culture. She was also tested for [place] it which was negative. Her throat pain and ability to swallow have worsened in the interim. She denies any chest pain or shortness of breath. She denies any nausea, vomiting or diarrhea. She was initially prescribed amoxicillin for suspected streptococcal pharyngitis MD Complaint: fever and sore throat Onset (ago): hour(s) Duration: constant Severity: moderate Relieving factors: nothing Exacerbating factors: nothing Description of mucous: clear Able to tolerate fluids by mouth: Yes Associated symptoms: denies other symptoms Treatments prior to arrival: none Related Data Home Medications Medication Instructions Recorded Confirmed albuterol sulfate 90 mcg/actuation 2 puff INHALATION Q4-6H PRN inh 08/01/17 09/13/19 aerosol inhaler multivitamin 1 tab PO DAILY 09/05/18 09/13/19 cholecalciferol (vitamin D3) 25 2,000 unit PO DAILY cap 04/03/19 09/13/19 mcg (1,000 unit) capsule Previous Rx's Medication Instructions Recorded hydroxyzine pamoate 25 mg capsule 25 mg PO Q4-6H PRN #90 cap MDD 05/25/19 Anxiety lamotrigine 100 mg tablet 100 mg PO ONCE 90 Days #90 tab 08/31/19 sertraline 100 mg tablet 150 mg PO DAILY 90 Days #135 tab 08/31/19 ziprasidone HCl 20 mg capsule 20 mg PO BID 90 Days #180 cap 08/31/19 amoxicillin 500 mg tablet 500 mg PO BID 10 Days #20 tab 09/13/19 amoxicillin-pot clavulanate 1 tab PO BID #20 tab 09/14/19 [Augmentin] ketorolac 10 mg PO Q6H PRN #14 tab 09/14/19 Allergies Allergy/AdvReac Type Severity Reaction Status Date / Time clonazepam [CLONAZEPAM] AdvReac Severe suicidal Verified 09/13/19 09:28 ideation Review of Systems Constitutional Constitutional: Denies chills, Denies fatigue, Denies fever(s), Denies frequent falls, Denies lethargy and Denies weakness Eyes Eyes: Denies change in vision, Denies eye discharge, Denies irritation and Denies loss of vision ENT Ears, Nose, Mouth, and Throat: Denies change in voice, Denies dizziness, Denies neck pain, Reports sore throat and Reports throat swelling Cardiovascular Cardiovascular: Denies chest pain, Denies irregular heart rhythm, Denies lightheadedness, Denies palpitations, Denies dyspnea, Denies dyspnea on exertion and Denies orthopnea Respiratory Respiratory: Denies cough, Denies dyspnea, Denies dyspnea on exertion and Denies wheezing Gastrointestinal Gastrointestinal: Denies abdominal pain, Denies change in bowel habits, Denies diarrhea, Denies nausea and Denies vomiting Musculoskeletal Musculoskeletal: Denies neck pain and Denies numbness Integumentary/Breasts Skin/Breast: Denies pruritus, Denies erythema, Denies rash and Denies wounds Neurologic Neurologic: Denies behavioral changes, Denies confusion, Denies dizziness, Denies frequent falls, Denies loss of vision, Denies numbness and Denies weakness Psychiatric Psychiatric: Denies anxiety, Denies behavioral changes, Denies confusion, Denies depression, Denies homicidal ideation and Denies suicidal ideation Endocrine Endocrine: Denies fatigue, Denies flushing and Denies palpitations Hematologic/Lymphatic Hematologic/Lymphatic: Denies easy bruising Allergic/Immunologic Allergic/Immunologic: Denies urticaria, Reports throat swelling and Denies wheezing Patient History Medical History Acute bronchitis (Inactive) Depression with anxiety (Acute) Family history of breast cancer in first degree relative (Acute) History of asthma (Inactive) History of bipolar disorder (Inactive) History of chronic back pain (Inactive) History of fracture (Inactive) Mild intermittent asthma (Acute) Muscle spasm (Inactive) Near syncope (Inactive) Pain in joint of right shoulder (Inactive) Palpitations (Inactive) Shoulder pain (Inactive) Vertigo (Inactive) Surgical History H/O shoulder surgery (Inactive) History of knee surgery (Inactive) History of tooth extraction (Inactive) Status post knee surgery Status post knee surgery Family History Brother Age: 37 Mental health problem Father Age: 66 Asthma Mother Age: 61 Mental health problem Social History household members: spouse lives independently: Yes pets and animals: Yes education level: college occupational status: employed leisure activities: other other: dancing, theater seatbelt use: always water heater temp set < 120 deg: Yes working smoke detector in home: Yes fire extinguisher in home: No carbon monox detector in home: Yes firearms in home: No Smoking Status: Never smoker second hand exposure: Yes (ocassionaly. My smokes, but not around me.) alcohol intake: current (usually jin - maybe once a week.) substance use type: does not use during the past year weight has: remained stable well-balanced diet: daily or most days daily servings fruits/ve-4 caffeine: Yes eating out: 1-3 times/week Type(s) of exercise: walking and other frequency: 5-6 times per week Smoking Status: Never smoker alcohol intake frequency: 0-2 drinks per day Substance Use Type: does not use Exam Narrative Exam Narrative: GENERAL: [33] year old patient appears stated age. Well-nourished, well-developed patient, in mild distress. HEAD: Atraumatic. Normocephalic. EYES: Pupils equal round and reactive. Extraocular motions intact. No scleral icterus. No injection or drainage. ENT: Nose without bleeding, purulent drainage. Tonsillar swelling with suggestion of R peritonsillar abscess with minimal uvula shift. Airway patent NECK: Trachea midline. Non tender CARDIOVASCULAR: Regular rate and rhythm without murmurs, gallops, or rubs. RESPIRATORY: Clear to auscultation. Breath sounds equal bilaterally. No wheezes, rales, or rhonchi. GASTROINTESTINAL: Abdomen soft, non-tender, nondistended. EXTREMITIES: No edema or joint tenderness. BACK: Nontender without deformity or crepitance. No flank tenderness. NEURO: AOx3. SKIN: No rash or erythema of visible areas Initial Vital Signs Initial Vital Signs: Vital Signs Temperature 98 F 09/14/19 19:27 Pulse Rate 92 H 09/14/19 19:27 Respiratory Rate 18 09/14/19 19:27 Blood Pressure 125/77 09/14/19 19:27 Pulse Oximetry 98 09/14/19 19:27 Course Course Course Narrative: patient feels much better after above stated therapies. Orders Ordered: Discontinued Medications Dexamethasone (Decadron) 10 mg IV NOW ONE Stop: 09/14/19 20:45 Last Admin: 09/14/19 21:24 Dose: 10 mg Documented by: GUMARO Sodium Chloride (Normal Saline 0.9%) 1,000 mls @ 1,000 mls/hr IV BOLUS ONE Stop: 09/14/19 21:43 Last Infusion: 09/14/19 23:10 Dose: 0 mls/hr Documented by: Admin: 09/14/19 21:23 Dose: 1,000 mls/hr Documented by: GUMARO Ampicillin Sodium/Sulbactam (Sodium 3 gm/ Sodium Chloride) 100 mls @ 100 mls/hr IV NOW ONE Stop: 09/14/19 20:45 Last Infusion: 09/14/19 22:38 Dose: 0 mls/hr Documented by: Admin: 09/14/19 21:23 Dose: 100 mls/hr Documented by: GUMARO Ketorolac Tromethamine (Toradol) 15 mg IV NOW ONE Stop: 09/14/19 20:45 Last Admin: 09/14/19 21:24 Dose: 15 mg Documented by: GUMARO Vital Signs Vital signs: Vital Signs - 8 hr 09/14/19 19:27 09/14/19 20:40 Temperature 98 F 98.8 F Pulse Rate 92 H 76 Respiratory Rate 18 14 Blood Pressure 125/77 Blood Pressure [Left Arm] 121/74 Pulse Oximetry 98 100 MDM - URI/Sore Throat Lab Data Result diagrams: 09/14/19 21:20 09/14/19 21:20 Labs: Lab Results 09/14/19 09/14/19 Range/Units 21:20 21:20 WBC 13.3 H (4.5-11.0) X10^3/uL RBC 4.03 (4.0-5.2) X10^6/uL Hgb 11.3 L (12.0-16.0) g/dL Hct 34.1 L (36-46) % MCV 84.7 (80-100) fL MCH 27.9 (26-34) PG MCHC 33.0 (30-36) % RDW 16.4 H (11.6-14.8) % Plt Count 342 (150-400) X10^3/uL Neut % (Auto) 74.5 (50-75) % Lymph % (Auto) 16.4 L (25-40) % [place] % (Auto) 7.7 (3-14) % Eos % (Auto) 1.1 L (2-4) % Baso % (Auto) 0.3 (0-2) % Neut # (Auto) 9900 H (0501-1523) /uL Lymph # (Auto) 2200 (8712-1292) /uL [place] # (Auto) 1000 H (0-900) /uL Eos # (Auto) 100 (0-450) /uL Baso # (Auto) 0 (0-100) /uL Sodium 138 (137-145) mmol/L Potassium 3.9 (3.4-5.1) mmol/L Chloride 101 (98-107) mmol/L Carbon Dioxide 28 (22-32) mmol/L BUN 10 (7-17) mg/dL Creatinine 0.73 (0.52-1.04) mg/dL Estimated GFR > 60.0 (>60) mL/min BUN/Creatinine Ratio 13.7 (6-22) Glucose 97 (70-100) mg/dL Calcium 10.0 (8.4-10.2) mg/dL Discharge Plan Departure Patient Disposition: Home Clinical Impression: Abscess, peritonsillar Discharge Date/Time: 09/14/19 23:23 Instructions: DI for Peritonsillar Abscess -- Adult Activity Restrictions/Additional Instructions: *You have been diagnosed with [right-sided peritonsillar abscess] *What to do: *Take medications as directed *Follow up with your primary care provider in 2-3 days, call for an appointment. Let them know you were seen in the Emergency Department and that we ask that you be seen in follow up *Return to ER if you should have any new, worsening or concerning symptoms Prescriptions: New amoxicillin-pot clavulanate [Augmentin] 875-125 mg tablet 1 tab PO BID Qty: 20 RF: 0 ketorolac 10 mg tablet 10 mg PO Q6H PRN (Reason: pain) Qty: 14 RF: 0 No Action amoxicillin 500 mg tablet 500 mg PO BID 10 Days Qty: 20 RF: 0 albuterol sulfate [Ventolin HFA] 90 mcg/actuation HFA aerosol inhaler 2 puff INHALATION Q4-6H PRNRF: 0 cholecalciferol (vitamin D3) 1,000 unit capsule 2,000 unit PO DAILY RF: 0 ziprasidone HCl 20 mg capsule 20 mg PO BID 90 Days Qty: 180 RF: 1 sertraline 100 mg tablet 150 mg PO DAILY 90 Days Qty: 135 RF: 1 lamotrigine 100 mg tablet 100 mg PO ONCE 90 Days Qty: 90 RF: 1 multivitamin tablet 1 tab PO DAILY RF: 0 hydroxyzine pamoate [Vistaril] 25 mg capsule 25 mg PO Q4-6H MDD Anxiety PRN (Reason: anxiety) Qty: 90 RF: 1 Referrals: Ashli Acevedo ARNP [Primary Care Provider] -
[2019-09-14] MEDS: SODIUM CHLORIDE 0.9% 1,000 ML 1000 ML IV (21:23)
[2019-09-14] MEDS: AMPICILLIN/SULBACTAM 3 GM 3 GM in SODIUM CHLORIDE 0.9% 100 ML IV (21:23)
[2019-09-14] MEDS: KETOROLAC 60 MG/2 ML VIAL 15 MG IV (21:24)
[2019-09-14] MEDS: DEXAMETHASONE 10 MG/ML VIAL IV (21:24)
[2019-09-14 21:32] LABS: Add Manual Diff / Slide Review NO; Basophils Absolute Auto 0 /uL (0-100); Basophils Percent Auto 0.3 % (0-2); Eosinophils Absolute Auto 100 /uL (0-450); Eosinophils Percent Auto 1.1 % (2-4); Hematocrit 34.1 % (36-46); Hemoglobin 11.3 g/dL (12.0-16.0); Lymphocytes Absolute Auto 2200 /uL (1100-4500); Lymphocytes Percent Auto 16.4 % (25-40); Mean Corpuscular Hemoglobin 27.9 PG (26-34); Mean Corpuscular Volume 84.7 fL (80-100); Monocytes Absolute Auto 1000 /uL (0-900); Monocytes Percent Auto 7.7 % (3-14); Neutrophils Absolute Auto 9900 /uL (1500-7000); Neutrophils Percent Auto 74.5 % (50-75); Platelet Count 342 X10^3/uL (150-400); Red Blood Cell Count 4.03 X10^6/uL (4.0-5.2); Red Cell Distribution Width 16.4 % (11.6-14.8); White Blood Cell Count 13.3 X10^3/uL (4.5-11.0)
[2019-09-14 21:37] LABS: BUN Creatinine Ratio 13.7 (6-22); Blood Urea Nitrogen 10 mg/dL (7-17); Carbon Dioxide 28 mmol/L (22-32); Chloride 101 mmol/L (98-107); Estimated Glomerular Filt Rate > 60.0 mL/min (>60); Glucose 97 mg/dL (70-100); HEMOLYSIS < 15 (0-50); Potassium 3.9 mmol/L (3.4-5.1); Sodium 138 mmol/L (137-145)
[2019-09-14 23:03] VITALS: BP 112/64; PULSE 69; RESP 16; O2SAT 95
== END 2019-09-14 23:23 | disposition home or self-care (01) ==
PROVIDERS: Emergency Provider Emergency Medicine; Family Provider Physician Assistant; PCP Nurse Practitioner
DX: J36 Peritonsillar abscess (principal)
CPT/HCPCS: 36415; 80048; 85025; 96361; 96365; 96375; 99284; J0295; J1100; J1885

== ENCOUNTER → 2020-06-16 14:00 | Outpatient (CLI) | payer OTHER, SELFPAY | PROVIDERS: Family Provider Physician Assistant; PCP Nurse Practitioner; Visit Provider Physician Assistant | DX: J02.9 Acute pharyngitis, unspecified (principal) | CPT/HCPCS: 87070 ==

== ENCOUNTER → 2021-10-07 08:08 | Outpatient (CLI) | payer OTHER, SELFPAY | PROVIDERS: Family Provider Physician Assistant; PCP Nurse Practitioner; Visit Provider Physician Assistant | DX: J02.9 Acute pharyngitis, unspecified (principal) | CPT/HCPCS: 87070; 87077; 87147 ==

== ENCOUNTER → 2022-05-27 07:05 | Outpatient (CLI) | payer OTHER, SELFPAY ==
[2022-05-27 08:33] LABS: Alanine Aminotransferase 19 IU/L (<35); Albumin 4.6 g/dL (3.5-5.0); Albumin Globulin Ratio 1.4 (1.0-2.8); Alkaline Phosphatase 83 U/L (38-126); Aspartate Aminotransferase 22 IU/L (14-36); BUN Creatinine Ratio 14.3 (6-22); Bilirubin Total 0.3 mg/dL (0.2-1.3); Blood Urea Nitrogen 11 mg/dL (7-17); Carbon Dioxide 27 mmol/L (22-32); Chloride 105 mmol/L (98-107); Cholesterol 247 mg/dL (140-199); Estimated Glomerular Filt Rate > 60 mL/min (>60); Globulin 3.3 g/dL (1.7-4.1); Glucose 87 mg/dL (70-100); HDL Cholesterol 47 mg/dL (40-60); HEMOLYSIS < 15 (0-50); LDL Cholesterol Calculated 181 mg/dL (<100); Potassium 4.4 mmol/L (3.4-5.1); Sodium 140 mmol/L (137-145); Total Protein 7.9 g/dL (6.3-8.2); Triglycerides 94 mg/dL (35-150)
[2022-05-27 08:37] LABS: Hemoglobin A1C% w Est Avg Glu 5.3 % (4.0-6.0)
[2022-05-27 08:39] LABS: Add Manual Diff / Slide Review NO; Basophils Absolute Auto 100 /uL (0-100); Basophils Percent Auto 0.8 % (0-2); Eosinophils Absolute Auto 100 /uL (0-450); Eosinophils Percent Auto 2.1 % (2-4); Hematocrit 36.6 % (36-46); Lymphocytes Absolute Auto 2600 /uL (1100-4500); Lymphocytes Percent Auto 36.4 % (25-40); Mean Corpuscular HGB Conc 32.7 % (30-36); Mean Corpuscular Hemoglobin 26.7 PG (26-34); Mean Corpuscular Volume 81.6 fL (80-100); Monocytes Absolute Auto 600 /uL (0-900); Monocytes Percent Auto 7.6 % (3-14); Neutrophils Absolute Auto 3800 /uL (1500-7000); Neutrophils Percent Auto 53.1 % (50-75); Platelet Count 349 X10^3/uL (150-400); Red Blood Cell Count 4.48 X10^6/uL (4.0-5.2); Red Cell Distribution Width 15.7 % (11.6-14.8); White Blood Cell Count 7.2 X10^3/uL (4.5-11.0)
[2022-05-27 09:06] LABS: Free T4, Direct Thyroxine 1.17 ng/dL (0.78-2.19)
[2022-05-27 09:20] LABS: Thyroid Stimulating Hormone 2.52 uIU/mL (0.47-4.68)
== END ==
PROVIDERS: Family Provider Physician Assistant; PCP Nurse Practitioner; Referring Provider Psychiatry & Neurology Psychiatry; Visit Provider Psychiatry & Neurology Psychiatry
DX: F31.81 Bipolar II disorder (principal); Z79.899 Other long term (current) drug therapy; F41.0 Panic disorder [episodic paroxysmal anxiety]; F41.1 Generalized anxiety disorder
CPT/HCPCS: 36415; 80053; 80061; 83036; 84439; 84443; 85025

== ENCOUNTER → 2022-08-13 08:27 | Outpatient (CLI) | payer OTHER, SELFPAY ==
[2022-08-13 09:13] LABS: Influenza A - CEPHEID Flu A NEGATIVE (NEGATIVE); Influenza B - CEPHEID Flu B NEGATIVE (NEGATIVE); Respiratory Syncytial Virus Negative (Negative)
[2022-08-13 09:14] LABS: COVID-19 CEPHEID 4-PLEX PCR Negative (Negative)
== END ==
PROVIDERS: Family Provider Physician Assistant; PCP Nurse Practitioner; Visit Provider Nurse Practitioner Family
DX: J06.9 Acute upper respiratory infection, unspecified (principal); Z20.822 Contact with and (suspected) exposure to COVID-19
CPT/HCPCS: 0241U